=== PATIENT | male | born 1945 | race Caucasian/White ===

== ENCOUNTER → 2018-09-26 | Day surgery (SDC) | payer BC, MEDICARE ==
[2018-09-17 13:56] VITALS: BMI 32.6
[~2018-09-26] MED LIST: ALPRAZolam 0.25 MG TAB PO PRN; ASPIRIN 325 MG TAB PO ONE; ASPIRIN 81 MG PO SCH; ATORVASTATIN 40 MG TAB PO SCH; CARVEDILOL 25 MG PO SCH; HEPARIN SODIUM 1,000 UN/ML (10ML VL) IV ONE; IOPAMIDOL-370 125ML BTL INJ ONE; ISOSORBIDE MONONITRATE ER 30 MG TAB.ER.24H PO SCH; LIDOCAINE 1% INJ 10MG/ML (20 ML MDV) ONE; LIDOCAINE 1% INJ 10MG/ML (20 ML MDV) SQ ONE; MIDAZOLAM 2 MG/2 ML VIAL IV ONE; MIDAZOLAM 2 MG/2 ML VIAL ONE; NITROGLYCERIN SL TABS 0.4 MG TAB SUBLINGUAL PRN; NON-FORMULARY DRUG (Losartan Potassium [Losartan Potassium] 100 MG) PO SCH; NON-FORMULARY DRUG (Spironolactone [Spironolactone] 50 MG) PO SCH; RX INFO: IV CONTRAST WAS GIVEN 1 EACH MISC MISCELLANE PRN; SODIUM CHLORIDE 0.9% 1,000 ML IV ONE; SODIUM CHLORIDE 0.9% 1,000 ML IV SCH; SODIUM CHLORIDE 0.9% 1,000 ML in EMPTY BAG 1 BAG IV ONE; VERAPAMIL 2.5 MG/ML 2 ML AMP ONE; fentaNYL (PF) 50 MCG/ML 2 ML AMP IV ONE; fentaNYL (PF) 50 MCG/ML 2 ML AMP ONE
[2018-09-26 08:29] LABS: Basophils % (A) 0 %; Eosinophils # (A) 0.2 k/uL (0-0.7); Eosinophils % (A) 4 %; HCT 41.7 % (39.0-53.0); Lymphocytes # (A) 1.1 k/uL (1.0-4.8); Lymphocytes % (A) 19 %; MCH 30.1 pg (25.0-35.0); MCHC 33.6 g/dL (31.0-37.0); MCV 89.4 fL (80.0-100.0); Mean Platelet Volume 6.5; Monocytes # (A) 0.3 k/uL (0-1.0); Monocytes % (A) 5 %; Neutrophils # (A) 4.1 k/uL (1.3-7.7); Neutrophils % (A) 70 %; Platelet Count 213 k/uL (150-450); RBC 4.67 m/uL (4.30-5.90); RDW 13.8 % (11.5-15.5)
[2018-09-26 08:44] VITALS: RESP 16; TEMP 98.1
--- NOTE | 2018-09-26 10:06 | CC ---
CARDIAC CATHETERIZATION REPORT Mr. Sahu is a 72-year-old male with a known history of coronary artery disease, status post anterior myocardial infarction and stenting of the LAD in 2010, known chronically occluded right coronary artery as well as history of cardiomyopathy with biventricular pacing, who has been followed by Dr. Feldman and had an abnormal myocardial perfusion imaging. In view of that, recommendation made regarding cardiac catheterization, the procedures, risks and complications were discussed with the patient who is in full understanding and agreement. PROCEDURE: Patient was brought to the r and d lab technician in a fasting semi-sedated state after receiving fentanyl and Benadryl and achieving moderate conscious sedated state. Using Xylocaine anesthesia and a Seldinger technique, a 6-[place] sheath was introduced in the right radial artery. Selective right and left coronary angiography performed using 5-[place] 3.5 bend right and left Wero catheters, multiple views of the coronary artery including hemiaxial views were obtained. Following that, a 5-[place] tight pigtail catheter was introduced in the left ventricle and a 30 degree TREVINO view of the left ventricle was obtained. Following that, catheter and sheath were removed, hemostasis was obtained with deployment of a TR band. There was no immediate complication. Patient is returned to his room in stable condition. Of note, patient received 5000 units of intravenous heparin as well as intra-arterial verapamil. FINDINGS: LEFT MAIN: This is a short size vessel bifurcating into left circumflex, left anterior descending artery. The left main coronary artery has no evidence of high-grade stenosis. LEFT ANTERIOR DESCENDING ARTERY: This is a large-sized vessel, reaching toward the apex, tapers down the distal third, giving rise to 2 diagonal branches, the second one is large in caliber. The left anterior descending artery stented segment proximally is patent. There is mild intimal disease in the proximal and mid area of 20% to 30% without any evidence of high-grade stenosis. LEFT CIRCUMFLEX: This is a large nondominant vessel giving rise to 2 obtuse marginal branches, the left circumflex after the takeoff of the first obtuse marginal branch has a 30% plaque. The rest of the vessel has no high-grade stenosis. RIGHT CORONARY ARTERY: This vessel is totally occluded proximally, was ipsilateral collateral and very slow flow into the distal PDA and a PLV. COLLATERALS: There is collateral to the right PDA from the left coronary artery system. LEFT VENTRICULOGRAM: Left ventriculogram is performed in 30 degree TREVINO view and revealed an anteroapical akinesis as well as off inferior wall hypokinesis. The ejection fraction is estimated at 30% to 35%. There was no significant mitral regurgitation. HEMODYNAMICS: There was no gradient across the aortic valve. The left ventricle end- diastolic pressure was 8-10 mmHg. CONCLUSION: 1. Chronically occluded right coronary artery. 2. Mild disease in the left anterior descending artery and the left circumflex. 3. Severely impaired left ventricular systolic function. RECOMMENDATION: In view of finding anatomy, I recommend continue medical therapy with aggressive risk modifications being initiated. I do not see any evidence of significant progression of disease. Those findings and recommendation were discussed with the patient and his family who are in full understanding and agreement. DURATION OF PROCEDURE: 17 minutes. QUENTIN / DENIS: [id number] /
[2018-09-26 16:23] VITALS: BP 117/56; PULSE 50
== END | disposition home or self-care (01) ==
LOC: CATHCVL 07:58
PROVIDERS: ATTEND Internal Medicine Interventional Cardiology
DX: I25.10 Atherosclerotic heart disease of native coronary artery without angina pectoris (principal); I11.0 Hypertensive heart disease with heart failure; I50.22 Chronic systolic (congestive) heart failure; I25.82 Chronic total occlusion of coronary artery; Z95.5 Presence of coronary angioplasty implant and graft; Z72.0 Tobacco use; I25.5 Ischemic cardiomyopathy; I47.1 Supraventricular tachycardia; I25.2 Old myocardial infarction; I47.2 Ventricular tachycardia; I35.1 Nonrheumatic aortic (valve) insufficiency; Z95.810 Presence of automatic (implantable) cardiac defibrillator; E78.5 Hyperlipidemia, unspecified; Z79.82 Long term (current) use of aspirin; Z79.899 Other long term (current) drug therapy; Z88.8 Allergy status to other drugs, medicaments and biological substances
CPT/HCPCS: 93458; 85025; C1769 ×2; C1894; J2250; J2001; J3010; J1644; Q9967

== ENCOUNTER → 2023-09-26 | Outpatient (CLI) | payer MEDICARE | LOC: CPPFTMAIN 07:40 | PROVIDERS: ATTEND Internal Medicine Clinical Cardiac Electrophysiology | DX: R06.02 Shortness of breath (principal); Z87.891 Personal history of nicotine dependence; Z88.8 Allergy status to other drugs, medicaments and biological substances | CPT/HCPCS: 94060; 94726; 94729 ==